=== PATIENT | female | born 1995 | race Caucasian/White ===

== ENCOUNTER 2017-08-12 19:43 | Emergency (ER) | payer BC ==
[2017-08-12 20:00] VITALS: BP 133/70
[2017-08-12] MEDS ORDERED: Metoclopramide IV* 5 MG/ML 2 ML VIAL ONE (20:09)
[2017-08-12] MEDS ORDERED: Ketorolac INJ* 30 MG/ML 1 ML VIAL IM ONE (20:10)
--- NOTE | 2017-08-12 20:18 | UC ---
Head Injury HPI - HPI Summary HPI Summary: 22 year old female with no significant pmhx here with headache. 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 No LOC. But over the past 24 hours, she developed nausea along with headache and difficulty concentrating. She denies motor or sensory deficit. - History Of Current Complaint Chief Complaint: UCHeadInjury Stated Complaint: HEAD INJURY Time Seen by Provider: 08/12/17 19:56 Hx Last Menstrual Period: last month` Pain Intensity: 7 Character: Sharp Aggravating Factor(s): Other - Light Associated Signs And Symptoms: Positive: Nausea. Negative: Vomiting - Allergies/Home Medications Allergies/Adverse Reactions: Allergies Allergy/AdvReac Type Severity Reaction Status Date / Time No Known Allergies Allergy Verified 08/12/17 19:52 PMH/Surg Hx/FS Hx/Imm Hx Previously Healthy: Yes - Surgical History Surgical History: None - Social History Alcohol Use: None Substance Use Type: None Smoking Status (MU): Never Smoked Tobacco Review of Systems Constitutional: Negative Skin: Negative Eyes: Negative ENT: Negative Respiratory: Negative Cardiovascular: Negative Gastrointestinal: Nausea Genitourinary: Negative Motor: Negative Neurovascular: Negative Musculoskeletal: Negative Neurological: Headache Psychological: Negative All Other Systems Reviewed And Are Negative: Yes Physical Exam Triage Information Reviewed: Yes Vital Signs: Initial Vital Signs Temp 37.1 C 08/12/17 19:51 Pulse 86 08/12/17 19:51 Resp 18 08/12/17 19:51 BP 133/70 08/12/17 19:51 Pulse Ox 100 08/12/17 19:51 Eye Exam: Normal ENT Exam: Normal Dental Exam: Normal Neck exam: Normal Neck: Positive: 1 Respiratory Exam: Normal Cardiovascular Exam: Normal Abdominal Exam: Normal Musculoskeletal Exam: Normal Neurological Exam: Normal Psychological Exam: Normal Skin Exam: Normal Head Injury Course/Dx - Differential Dx/Diagnosis Differential Diagnosis/HQI/PQRI: Cerebral Contusion, Concussion Without LOC, Contusion Provider Diagnoses: Concussion Discharge - Sign-Out/Discharge Documenting (check all that apply): Discharge/Admit/Transfer - Discharge Plan Condition: Good Disposition: HOME Prescriptions: Metoclopramide TAB* [Reglan TAB*] 5 mg PO Q8H PRN #12 tab PRN Reason: Nausea Patient Education Materials: Concussion (ED) Forms: *Work Release [facility] - Marya Alas MD [Medical Doctor] - - Billing Disposition and Condition Condition: GOOD Disposition: Home
== END 2017-08-12 20:35 | disposition home or self-care (01) ==
LOC: UCEAST 19:43
DX: S06.0X0A Concussion without loss of consciousness, initial encounter (principal); W22.09XA Striking against other stationary object, initial encounter; Y93.89 Activity, other specified; Y92.89 Other specified places as the place of occurrence of the external cause; Y99.0 Civilian activity done for income or pay; R11.0 Nausea
CPT/HCPCS: 96372; 99202; G0463; J1885; J2765